=== PATIENT | female | born 1970 | race African-American/Black ===

== ENCOUNTER 2017-09-06 02:38 | Emergency (ER) | payer MEDICARE, OTHER ==
[~2017-09-06] VITALS: Ht 167.6 cm; Wt 115.0 kg
[~2017-09-06 02:38] MED LIST: BACL10TA PO; DICL75 PO
[2017-09-06 02:39] VITALS: BP 220/139; PULSE 117; RESP 22; TEMP 97.9; O2SAT 99
[2017-09-06] MEDS ORDERED: LIPI10TA PO (03:18)
[2017-09-06] MEDS ORDERED: SODIUM CHLOR 0.9% 1000 ML INJ 1,000 ML IV SCH (03:19)
[2017-09-06] MEDS ORDERED: ONDANSETRON HCL 4 MG/2 ML VIAL IVP ONE (03:30)
[2017-09-06] MEDS ORDERED: MORPHINE SULFATE 2 MG/ML INJ IV PUSH ONE ×4 (03:30→05:15)
[2017-09-06] MEDS ORDERED: SODIUM CHLORIDE 0.9% FLUSH 10 ML FLUSH IV FLUSH PRN (03:30)
[2017-09-06 03:50] VITALS: RESP 20; O2SAT 98
[2017-09-06 03:56] LABS: HEMATOCRIT 33.3 % (35.0-46.0); HEMOGLOBIN 10.9 GM/DL (11.6-15.3); MEAN CELL VOLUME 87.8 FL (80.0-100.0); MEAN CORPUSCULAR HEMOGLOBIN 28.7 PG (27.0-34.0); MEAN CORPUSCULAR HGB CONC 32.7 % (32.0-36.0); MEAN PLATELET VOLUME 8.1 FL (7.0-11.0); PLATELET COUNT 468 TH/MM3 (150-450); RED BLOOD COUNT 3.79 MIL/MM3 (4.00-5.30); RED CELL DISTRIBUTION WIDTH 16.5 % (11.6-17.2); WHITE BLOOD COUNT 13.9 TH/MM3 (4.0-11.0)
[2017-09-06 04:06] LABS: PROTHROMBIN TIME - PATIENT 9.8 SEC (9.8-11.6)
[2017-09-06 05:05] VITALS: BP 179/81; PULSE 86; RESP 20; O2SAT 99
[2017-09-06 05:11] LABS: BASOPHILS 1 % (0-2); LYMPHOCYTES 38 % (9-44); MONOCYTES 3 % (0-8); NEUTROPHIL # MANUAL DIFF 7.9 TH/MM3 (1.8-7.7); POLYS (SEG NEUTROPHILS) 57 % (16-70)
[2017-09-06 05:33] LABS: TOTAL PROTEIN 8.3 GM/DL (6.4-8.2)
[2017-09-06 05:34] LABS: ALBUMIN 2.7 GM/DL (3.4-5.0); ALT (GPT) 17 U/L (10-53); AST (GOT) 20 U/L (15-37); BICARBONATE 23.2 MEQ/L (21.0-32.0); BLOOD UREA NITROGEN 28 MG/DL (7-18); CHLORIDE 107 MEQ/L (98-107); CREATININE 1.65 MG/DL (0.50-1.00); DIRECT BILIRUBIN ADULT LESS THAN 0.1 MG/DL (0.0-0.2); GLOMERULAR FILTRATION RATE 40 ML/MIN (>89); GLUCOSE,RANDOM 170 MG/DL (74-106); SODIUM (NA) 139 MEQ/L (136-145)
[2017-09-06 05:36] LABS: CALCIUM 8.6 MG/DL (8.5-10.1)
[2017-09-06 05:37] LABS: ALKALINE PHOSPHATASE 63 U/L (45-117); INDIRECT BILIRUBIN 0.2 MG/DL (0.0-0.8); TOTAL BILIRUBIN ADULT 0.3 MG/DL (0.2-1.0)
[2017-09-06] MEDS ORDERED: AMLO10TA2 PO (05:53)
[2017-09-06] MEDS ORDERED: IOHEXOL 350 MG/ML 10 ML VIAL (for RAD DIAG) IVCONTRAST ONE (06:20)
--- NOTE | 2017-09-06 06:31 | RADRPT ---
EXAM DATE/TIME: 09/06/2017 06:09 [place] COMPARISON: No previous studies available for comparison. INDICATIONS : Diffuse abdominal pain. IV CONTRAST: 70 cc Omnipaque 350 (iohexol) IV ORAL CONTRAST: No oral contrast ingested. RADIATION DOSE: 15.27 CTDIvol (mGy) MEDICAL HISTORY : HIV. SURGICAL HISTORY : Left hip replacement. ENCOUNTER: Initial ACUITY: 1 day PAIN SCALE: 6/10 LOCATION: All quadrants. TECHNIQUE: Volumetric scanning of the abdomen and pelvis was performed. Using automated exposure control and ad justment of the mA and/or kV according to patient size, radiation dose was kept as low as reasonably achievable to obtain optimal diagnostic quality images. DICOM format image data is available electro nically for review and comparison. FINDINGS: Left hip arthroplasty. Lung bases are clear. There are are no pleural or pericardial effusions. Liver , gallbladder, kidneys, spleen, pancreas, adrenals unremarkable. Small hiatal hernia. There is eviden ce of previous partial small bowel resection with an anastomotic staple line in the central abdomen. The uterus is partially obscured by streak artifact from the hip arthroplasty. There is trace free fl uid in the cul-de-sac. Ovaries unremarkable. Scatter diverticulosis of the descending colon. There is a fat containing ventral hernia on image 46 measuring 2 cm in transverse dimension at the anterior a bdominal wall. There is diastasis of the rectus abdominis musculature and a fat containing umbilical hernia is noted. There is a small amount of free fluid anterior to the uterus. Urinary bladder is nor mal. Appendix normal. CONCLUSION: 1. Fat-containing umbilical hernia and supraumbilical ventral fat-containing hernia identified. 2. Small amount of free fluid in the pelvis. Ronn Goel MD on September 06, 2017 at 6:26 Board Certified Radiologist. This report was verified electronically.
[2017-09-06 06:36] VITALS: BP 171/80; PULSE 94; RESP 18; O2SAT 98
[2017-09-06] MEDS ORDERED: NORC5TAB PO (06:53)
--- NOTE | 2017-09-06 06:54 | PD ---
HPI Chief Complaint: Abdominal Pain Time Seen by Provider: 03:04 Travel History International Travel<30 days: No Contact w/Intl Traveler<30days: No Traveled to known affect area: No History of Present Illness HPI Patient is a 47-year-old female comes in complaining of abdominal pain. She says the pain in her right upper quadrant, and started today. She says the pain is in the middle of her stomach and wraps around to the back. She denies fever chills. She has felt nauseous, no vomiting. She says she is moving her bowels normally. She says nothing makes the pain better or worse. She says she has never had pain like this before. She denies any abdominal surgeries in the past. [facility] Past Medical History Autoimmune Disease: Yes (HIV) High Cholesterol: Yes Medical other: Yes (neuropathy) Influenza Vaccination: No ?: Not Social History Alcohol Use: No Tobacco Use: No Substance Use: No Allergies-Medications (Allergen,Severity, Reaction): Coded Allergies: No Known Allergies (Verified Adverse Reaction, Unknown, 09/06/17) Reported Meds & Prescriptions Reported Meds & Active Scripts Active Reported Amlodipine (Amlodipine Besylate) 10 Mg Tab 10 Mg PO DAILY Lipitor (Atorvastatin Calcium) 10 Mg Tab 10 Mg PO HS Review of Systems Except as stated in HPI: all other systems reviewed are Neg General / Constitutional: No: Fever, Chills HENT: No: Headaches, Lightheadedness Cardiovascular: No: Chest Pain or Discomfort Respiratory: No: Shortness of Breath Gastrointestinal: Positive: Abdominal Pain Genitourinary: No: Dysuria Musculoskeletal: No: Myalgias Skin: No Rash, No Itching Neurologic: No: Weakness, Dizziness Physical Exam Narrative GENERAL: Awake and alert, no acute distress. SKIN: Focused skin assessment warm/dry. HEAD: Atraumatic. Normocephalic. EYES: Pupils equal and round. No scleral icterus. ENT: Mucous membranes pink and moist. NECK: Trachea midline. No JVD. CARDIOVASCULAR: Regular rate and rhythm. No murmur appreciated. RESPIRATORY: No accessory muscle use. Clear to auscultation. Breath sounds equal bilaterally. GASTROINTESTINAL: Abdomen soft, nondistended. Tender to palpation of the right upper quadrant and epigastric area. MUSCULOSKELETAL: No obvious deformities. No clubbing. No cyanosis. No edema. NEUROLOGICAL: Awake and alert. No obvious cranial nerve deficits. Motor grossly within normal limits. Normal speech. PSYCHIATRIC: Appropriate mood and affect; insight and judgment normal. Data Data Last Documented VS Vital Signs Date Time Temp Pulse Resp B/P (MAP) Pulse Ox O2 Delivery O2 Flow Rate FiO2 09/06/17 06:36 94 18 171/80 (110) 98 Room Air 09/06/17 02:39 97.9 Orders Orders Basic Metabolic Panel (Bmp) (09/06/17 03:19) Complete Blood Count With Diff (09/06/17 03:19) Lipase (09/06/17 03:19) Prothrombin Time / Inr (Pt) (09/06/17 03:19) Act Partial Throm Time (Ptt) (09/06/17 03:19) Urinalysis - C+S If Indicated (09/06/17 03:19) Ct Abd/Pel W Iv Contrast(Rout) (09/06/17 03:19) Iv Access Insert/Monitor (09/06/17 03:19) Ecg Monitoring (09/06/17 03:19) Oximetry (09/06/17 03:19) Ondansetron Inj (Zofran Inj) (09/06/17 03:30) Sodium Chlor 0.9% 1000 Ml Inj (Ns 1000 M (09/06/17 03:19) Sodium Chloride 0.9% Flush (Ns Flush) (09/06/17 03:30) Electrocardiogram (09/06/17 03:19) Hepatic Functional Panel (09/06/17 03:19) Morphine Inj (Morphine Inj) (09/06/17 03:30) Morphine Inj (Morphine Inj) (09/06/17 03:30) Morphine Inj (Morphine Inj) (09/06/17 05:15) Morphine Inj (Morphine Inj) (09/06/17 05:15) Iohexol 350 Inj (Omnipaque 350 Inj) (09/06/17 06:20) Labs Laboratory Tests Test 09/06/17 03:30 09/06/17 05:10 White Blood Count 13.9 TH/MM3 Red Blood Count 3.79 MIL/MM3 Hemoglobin 10.9 GM/DL Hematocrit 33.3 % Mean Corpuscular Volume 87.8 FL Mean Corpuscular Hemoglobin 28.7 PG Mean Corpuscular Hemoglobin Concent 32.7 % Red Cell Distribution Width 16.5 % Platelet Count 468 TH/MM3 Mean Platelet Volume 8.1 FL CBC Comment AUTO DIFF Differential Total Cells Counted 100 Neutrophils % (Manual) 57 % Lymphocytes % 38 % Monocytes % 3 % Eosinophils % 1 % Basophils % 1 % Neutrophils # (Manual) 7.9 TH/MM3 Differential Comment FINAL DIFF MANUAL Platelet Estimate HIGH Platelet Morphology Comment NORMAL Red Cell Morphology Comment NORMAL Prothrombin Time 9.8 SEC Prothromb Time International Ratio 1.0 RATIO Activated Partial Thromboplast Time 22.6 SEC Blood Urea Nitrogen 28 MG/DL Creatinine 1.65 MG/DL Random Glucose 170 MG/DL Total Protein 8.3 GM/DL Albumin 2.7 GM/DL Calcium Level 8.6 MG/DL Alkaline Phosphatase 63 U/L Aspartate Amino Transf (AST/SGOT) 20 U/L Alanine Aminotransferase (ALT/SGPT) 17 U/L Total Bilirubin 0.3 MG/DL Direct Bilirubin LESS THAN 0.1 MG/DL Sodium Level 139 MEQ/L Potassium Level 3.8 MEQ/L Chloride Level 107 MEQ/L Carbon Dioxide Level 23.2 MEQ/L Anion Gap 9 MEQ/L Estimat Glomerular Filtration Rate 40 ML/MIN Indirect Bilirubin 0.2 MG/DL Lipase 197 U/L [facility] Medical Decision Making Medical Screen Exam Complete: Yes Emergency Medical Condition: Yes Medical Record Reviewed: Yes Interpretation(s) ECG shows normal sinus rhythm at 89, no ST elevation Differential Diagnosis Pancreatitis versus gastritis versus cholecystitis versus cholelithiasis Narrative Course Patient is a 47-year-old female comes in complaining of abdominal pain. Exam shows tenderness in the epigastric area as well as right upper quadrant. IV established, labs sent. Labs show no acute abnormalities, other than an elevated white blood cell count of 13. CT abdomen and pelvis performed shows 2 fat-containing hernias. Patient was given pain medicine and reports feeling better. She will be discharged with prescription for pain medicine. Advised follow-up with general surgery. Advised to return to the ED as needed for any worsening symptoms. Last 48 hours Impressions Abdomen/Pelvis CT 09/06/17 0319 Signed Impressions: Service Date/Time: Wednesday, September 06, 2017 06:09 - CONCLUSION: 1. Fat-containing umbilical hernia and supraumbilical ventral fat-containing hernia identified. 2. Small amount of free fluid in the pelvis. Ronn Goel MD Diagnosis Primary Impression: Abdominal hernia Qualified Codes: K43.9 - Ventral hernia without obstruction or gangrene Referrals: Dylon Cheng MD call for appointment Patient Instructions: General Instructions, Umbilical Hernia (ED) Additional Instructions: Follow-up with general surgery. Take pain medicine as needed. Return to the ED as needed for any worsening symptoms. Scripts Hydrocodone-Acetaminophen ([place]) 5 Mg-325 Mg Tab 1 TAB PO Q6H Y for PAIN, #10 TAB 0 Refills Prov: Maribel Woods MD 09/06/17 Disposition: DISCHARGE HOME Condition: Stable Maribel Woods MD Sep 06, 2017 06:53
--- NOTE | 2017-09-06 21:46 | EKG ---
Date Performed: 09/06/2017 Time Performed: 03:45:42 PTAGE: 47 years EKG: Sinus rhythm Compared to previous tracing patient is no longer tachycardic NORMAL ECG NO PREVIOUS TRACING DOCTOR: Bobby Sommers Interpretating Date/Time 09/06/2017 21:44:59
== END 2017-09-06 07:09 | disposition home or self-care (01) ==
LOC: NEPC 02:38
DX: K43.9 Ventral hernia without obstruction or gangrene (principal); E78.00 Pure hypercholesterolemia, unspecified; Z21 Asymptomatic human immunodeficiency virus [HIV] infection status
CPT/HCPCS: 74177; 80048; 80076; 83690; 85007; 85027; 85610; 85730; 93005; 96374; 96375; 96376; 99285; J2270; J2405; J7030; Q9967